=== PATIENT | male | born 1990 | race American Indian/Alaskan Native ===

== ENCOUNTER 2016-07-03 18:44 | Emergency (ER) | payer SELFPAY ==
[2016-07-03 19:09] VITALS: BP 138/77
== END 2016-07-03 20:26 | disposition left against medical advice (07) ==
LOC: ED 18:44
DX: M54.2 Cervicalgia (principal); R51 Headache; M54.9 Dorsalgia, unspecified; Z53.21 Procedure and treatment not carried out due to patient leaving prior to being seen by health care provider